=== PATIENT | male | born 1960 | race African-American/Black ===

== ENCOUNTER 2017-05-12 22:10 | Emergency (ER) | payer MEDICARE ==
[~2017-05-12] VITALS: Ht 185.4 cm; Wt 105.0 kg
[2017-05-12] MEDS ORDERED: DIVA500T2 PO (22:20)
[2017-05-12] MEDS ORDERED: OLAN10TA9 PO (22:22)
[2017-05-12] MEDS ORDERED: BENZ2AMP4 PO (22:23)
[2017-05-12] MEDS ORDERED: METF500T4 PO (22:25)
[2017-05-12] MEDS ORDERED: ASPIRIN 81 MG TABLET CHEW PO ONE (23:00)
[2017-05-12] MEDS ORDERED: ASPIRIN 81 MG TABLET CHEW ONE (23:40)
[2017-05-12 23:55] LABS: ASPARTATE AMINO TRANSFERASE 44 U/L (15-37); BLOOD UREA NITROGEN 13 mg/dL (7-18)
[2017-05-13 00:04] LABS: IS PT STATUS REG ER OR PRE ER? YES
[2017-05-13 00:19] VITALS: BP 122/70
== END 2017-05-13 00:59 | disposition home or self-care (01) ==
LOC: ED 23:59
DX: R07.89 Other chest pain (principal); F43.10 Post-traumatic stress disorder, unspecified; F25.9 Schizoaffective disorder, unspecified; F31.9 Bipolar disorder, unspecified
CPT/HCPCS: 36415; 71010; 80053; 83690; 84484; 85025; 93005; 99285

== ENCOUNTER 2017-12-11 08:43 | Emergency (ER) | payer MEDICARE ==
[~2017-12-11] VITALS: Ht 182.9 cm; Wt 90.0 kg
[~2017-12-11 08:43] MED LIST: BENZ2AMP4 PO; DIVA500T2 PO; METF500T4 PO; OLAN10TA9 PO
[2017-12-11 09:01] VITALS: BP 116/88
[2017-12-11] MEDS ORDERED: ACETAMINOPHEN 500 MG TABLET PO ONE (09:30)
[2017-12-11] MEDS ORDERED: ACETAMINOPHEN 500 MG TABLET ONE (09:58)
== END 2017-12-11 11:34 | disposition home or self-care (01) ==
LOC: ED 10:35
DX: M25.562 Pain in left knee (principal); M25.462 Effusion, left knee; G89.11 Acute pain due to trauma; E11.9 Type 2 diabetes mellitus without complications; I10 Essential (primary) hypertension; F43.10 Post-traumatic stress disorder, unspecified
CPT/HCPCS: 29505; 99284

== ENCOUNTER 2018-01-07 16:11 | Emergency (ER) | payer MEDICARE ==
[~2018-01-07] VITALS: Ht 182.9 cm; Wt 88.5 kg
[2018-01-07] MEDS ORDERED: OLAN5TAB3 PO (16:23)
[2018-01-07] MEDS ORDERED: IBUPROFEN 200 MG TABLET ONE (16:29)
[2018-01-07] MEDS ORDERED: IBUPROFEN 200 MG TABLET PO ONE (16:30)
[2018-01-07 16:52] LABS: ALBUMIN 3.5 g/dL (3.4-5.0); ANION GAP 9 mmol/L (5-15); CALCIUM 8.6 mg/dL (8.5-10.1); CHLORIDE 95 mmol/L (98-107); CREATININE 0.77 mg/dL (0.7-1.3)
[2018-01-07 16:56] LABS: TROPONIN I < 0.015 ng/mL (0.000-0.045)
[2018-01-07 17:07] LABS: MD YES; MEAN CORPUSCULAR HEMOGLOBIN 31.3 pg (27.5-34.5); MEAN CORPUSCULAR HGB CONC 33.9 g/dL (33.2-36.2); MEAN CORPUSCULAR VOLUME 92.5 fL (81-97); MEAN PLATELET VOLUME 8.1 fL (7.4-10.4); PLATELET COUNT 221 x10^3/uL (130-400); RED BLOOD COUNT 4.41 x10^6/uL (4.38-5.82); RED CELL DISTRIBUTION WIDTH 14.6 % (9.4-14.8)
[2018-01-07 17:09] LABS: EOS#(MANUAL) 1.99 x10^3/uL (0.0-0.4); EOS% (MANUAL) 28 % (1-7); LYMPHS% (MANUAL) 31 % (22-44); MONOS#(MANUAL) 0.43 x10^3/uL (0.3-2.7); MONOS% (MANUAL) 6 % (2-9); SEG#(MANUAL) 2.49 x10^3/uL (1.8-6.8); SEGS% (MANUAL) 35 % (42-75)
[2018-01-07 17:11] LABS: <PLATELET ESTIMATE> ADEQUATE; <PLT MORPHOLOGY> NORMAL PLT MORPH; <RBC MORPHOLOGY> NORMAL
[2018-01-07 18:07] VITALS: BP 126/92
== END 2018-01-07 18:11 | disposition home or self-care (01) ==
LOC: ED 16:43
DX: M94.0 Chondrocostal junction syndrome [Tietze] (principal); I25.2 Old myocardial infarction; E11.9 Type 2 diabetes mellitus without complications; I10 Essential (primary) hypertension; F25.9 Schizoaffective disorder, unspecified; F43.10 Post-traumatic stress disorder, unspecified; Z86.73 Personal history of transient ischemic attack (TIA), and cerebral infarction without residual deficits; Z79.82 Long term (current) use of aspirin; Z88.5 Allergy status to narcotic agent
CPT/HCPCS: 36415; 71045; 80048; 82040; 84484; 85025; 93005; 99285

== ENCOUNTER 2018-06-23 08:53 | Emergency (ER) | payer MEDICARE ==
[~2018-06-23] VITALS: Ht 182.9 cm; Wt 83.2 kg
[~2018-06-23 08:53] MED LIST changes: -METF500T4 PO; +METF500T5 PO; +OLAN5TAB3 PO
[2018-06-23 09:03] VITALS: BP 123/86
== END 2018-06-23 10:16 | disposition home or self-care (01) ==
LOC: ED 09:45
DX: M54.9 Dorsalgia, unspecified (principal); I10 Essential (primary) hypertension; E11.9 Type 2 diabetes mellitus without complications; F31.9 Bipolar disorder, unspecified; F25.9 Schizoaffective disorder, unspecified; Z86.73 Personal history of transient ischemic attack (TIA), and cerebral infarction without residual deficits
CPT/HCPCS: 99282

== ENCOUNTER 2019-02-24 11:56 | Emergency (ER) | payer MEDICARE ==
[~2019-02-24] VITALS: Ht 182.9 cm; Wt 86.9 kg
[~2019-02-24 11:56] MED LIST changes: +METF500T17 PO; -METF500T5 PO
[2019-02-24 12:13] VITALS: BP 169/93
--- NOTE | 2019-02-24 12:37 | NUR ---
PRELIM ASSESSMENT. 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 PT STATES R SIDED QU[place] STARTED TODAY WHILE WALKING. PT FELT "I WAS GOING TO NOD OFF", CONFIRMED WITH PT THIS MEANT DIZZINESS AND "ALMOST BLACKING OUT". PT ALSO STATING HE HAS INTERMITTENT CP FOR DAYS. HX OF NV WELL. PT TO BE MOVED FROM RME 5 TO ROOM 35. MIESHA CALHOUN EVALUATING AT THIS TIME.
--- NOTE | 2019-02-24 12:44 | NUR ---
MOVED TO [facility]
[2019-02-24 13:08] LABS: BASOPHILS # (AUTO) 0.01 x10^3/uL (0-0.1); BASOPHILS % (AUTO) 0 % (0-1); EOSINOPHILS # (AUTO) 0.16 x10^3/uL (0-0.4); EOSINOPHILS % (AUTO) 3 % (1-7); LYMPHOCYTES % (AUTO) 22 % (22-44); MD NO; MEAN CORPUSCULAR HEMOGLOBIN 31.9 pg (27.5-34.5); MEAN CORPUSCULAR HGB CONC 34.2 g/dL (33.2-36.2); MEAN CORPUSCULAR VOLUME 93.3 fL (81-97); MEAN PLATELET VOLUME 8.2 fL (7.4-10.4); MONOCYTES # (AUTO) 0.43 x10^3/uL (0.2-0.8); MONOCYTES % (AUTO) 8 % (2-9); NEUTROPHILS # (AUTO) 3.66 x10^3/uL (1.8-6.8); NEUTROPHILS % (AUTO) 67 % (42-75); PLATELET COUNT 178 x10^3/uL (130-400); RED BLOOD COUNT 4.26 x10^6/uL (4.38-5.82); RED CELL DISTRIBUTION WIDTH 14.9 % (9.4-14.8)
--- NOTE | 2019-02-24 13:08 | NUR ---
PT IN ROOM ON CARDIAC, NIBP AND O2 MONITORING. TECH IN ROOM FOR EKG AND IV.
[2019-02-24 13:18] LABS: ALBUMIN 3.7 g/dL (3.4-5.0); ANION GAP 11 mmol/L (5-15); CALCIUM 8.5 mg/dL (8.5-10.1); CHLORIDE 104 mmol/L (98-107)
== END 2019-02-24 14:32 | disposition home or self-care (01) ==
LOC: ED 13:35
DX: R53.1 Weakness (principal); M54.5 Low back pain; R51 Headache; I10 Essential (primary) hypertension; E11.9 Type 2 diabetes mellitus without complications; F25.9 Schizoaffective disorder, unspecified; F31.9 Bipolar disorder, unspecified; F43.10 Post-traumatic stress disorder, unspecified; F29 Unspecified psychosis not due to a substance or known physiological condition; Z86.73 Personal history of transient ischemic attack (TIA), and cerebral infarction without residual deficits; Z86.19 Personal history of other infectious and parasitic diseases; Z86.11 Personal history of tuberculosis
CPT/HCPCS: 36415; 80048; 82040; 85025; 93005; 99284